=== PATIENT | male | born 1970 | race Caucasian/White ===

== ENCOUNTER 2021-06-20 01:14 | Outpatient (CLI) | payer BC, SELFPAY ==
[2021-06-20 10:55] LABS: Source Nasal/Nares
[2021-06-20 14:39] LABS: COVID-19 PCR Negative (Negative)
== END 2021-06-20 01:15 | disposition home or self-care (01) ==
LOC: LBO 01:14
PROVIDERS: PCP Physician Assistant; Visit Provider Family Medicine
DX: Z20.822 Contact with and (suspected) exposure to COVID-19 (principal)
CPT/HCPCS: 87635

== ENCOUNTER 2021-06-22 01:28 | Outpatient (CLI) | payer BC, SELFPAY ==
--- NOTE | 2021-06-22 13:31 | ST.MBS_ITS ---
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 Prior medical history largely unremarkable. Patient is now s/p biopsy of tongue base on 03/2021, currently undergoing radiation treatment with adjuvant chemotherapy at [facility] in [place], [place]. Primary tumor location: Tongue base Secondary tumor location: cervical adenopathy Resection: biopsy only,05/04/2021. Reconstruction: no Previous cancer treatment: no Feeding tube present: yes Weight loss: 9lb lb loss after biopsy, then molar extraction due to pain/difficulty chewing; actively followed by RD at [facility] Prior level of swallow function: no history prior, presume WNL. Oral Motor examination unchanged relative to clinical swallow evaluation. Jaw: 35 mm MATI Dentition: natural/intact, except 1 R mandibular molar recently prophylactically extracted SUBJECTIVE: Patient reports no change(s) relative to clinical swallow evaluation aside from soreness related to radiation treatment. Will occasionally have globus with pills, easily resolved with thin liquid wash; endorses continued mild odynophagia and sensation of pharyngeal residue secondary to tumor, but otherwise no trouble with swallowing. MDADI MD Dyllan Dysphagia Inventory (MDADI), a validated and reliable self- administered questionnaire designed specifically for evaluating the impact of dysphagia on the QOL of patients with head and neck cancer (Megan et al 2001), was re-administered: Global Score: 4 Physical: 3.8 (relative to 4 in 05/2021) Emotional : 3.3 (relative to 4.2 in 05/2021) Functional: 4.0 (relative to 4.2 in 05/2021) Scores range from 1 (extremely low functioning) to 5 (Extremely high functioning) Composite Score: 73.7 (relative to 82 in 05/2021) Scores range from 20 ? extremely low functioning, to 100 ? high functioning. Overall scores represent mildly reduced physical effects, mild-moderate emotional effects from current dysphagia presentation. IMPRESSIONS: Swallow safety is preserved; swallow efficiency is mildly impaired. Mild oropharyngeal dysphagia, characterized by reduced lingual control+delayed pharyngeal swallow onset as evidenced by premature spillage of less viscous liquids (less than half of bolus) to level of the valleculae prior to swallow onset with swallow triggered at valleculae across most trials, and mildly reduced laryngeal elevation/laryngeal vestibule closure as evidenced by occasional flash penetration of less viscous liquids; hypertrophy noted along cervical esophagus during swallow at approx C6 level, otherwise overall functional swallow; patient is sensate to prespillage of liquids per his report. 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 Patient appears to be at low risk for potential aspiration PNA and/or pulmonary compromise and low-moderate risk for malnutrition/dehydration given current chemoradiation treatment process, possible treatment-related symptoms, and presence of feeding tube. Oral diet modification is not indicated; non-oral nutrition is prophylactically in place. Swallow prognosis is good given age, cancer type and location, client report of participation in some prescribed swallow exercise to date (ie effortful swallow only per patient report); prognosis pending patient/caregiver training in risk management as outlined during current cancer treatment, including use of trialed compensatory strategies. Patient appears to be a good candidate for behavioral swallow rehabilitation. Specialist referrals: N/A Ancillary tests: N/A at this time Diet texture recommendation: IDDSI Level 7-Regular Solids, 0-Thin Liquids Please see further details at [email or web address] Diet texture modification is per patient's preference; please adjust diet textures at patient's discretion & collaboration with care team. Risk Management: Behavioral reflux precautions, including upright position during + 90 mins after meals. Alternate solids/liquids as able Control risk factors for aspiration pneumonia via (a) thorough oral hygiene & (b) maintaining physical mobility as tolerated PLAN: Therapy: Patient has subsequent outpatient session scheduled with OPEN DEVELOPER OPERATOR via [facility] to review results of today's exam and develop further treatment plan as appropriate; [facility] OPEN DEVELOPER OPERATOR to follow PRN throughout patient's chemoradiation treatment. Goal: Additional goals TBD pending further patient/caregiver interview Follow-up exam: TBD Thank you for allowing me to take part in this patient's care. Please feel free to contact me with any questions/concerns. Aubree Casper MA [facility]EL[facility]PER[facility] Speech Language Pathologist [phone] OBJECTIVE: Videofluoroscopic Swallow Evaluation (VFSE/MBSS) was conducted in the lateral and [id number] projections by Speech-Language Pathologist, in collaboration with Radiologist, to evaluate oropharyngeal swallow function. Anatomic view under fluoroscopy: WFL PO Barium Contrast Trials Oral barium water-soluble contrast was administered as follows: IDDSI Level 0 Varibar thin liquid (40% w/v) IDDSI Level 2 Varibar nectar thick/mildly thick liquid (40% w/v) IDDSI Level 3 Varibar thin honey/liquidised/moderately-thick (40% w/v) IDDSI Level 4 Varibar pudding/pureed/extremely thick (40% w/v) IDDSI Level 7 Regular Solid: 1/2 dudley cracker coated in 3 mL Varibar pudding; 13 mm barium tablet PHYSIOLOGIC FINDINGS (1) Oral Impairment 1 Lip Closure 0-No labial escape 2 Tongue Control 2- Posterior escape of less than half of bolus 3 Bolus Preparation/Mastication 0- Timely and efficient chewing/mashing 4 Bolus Transport/Lingual Motion 0- Brisk tongue motion 5 Oral residue 1- Trace residue lining oral structures Location palate, tongue 6 Initiation of pharyngeal swallow 1- Bolus head in valleculae Pharyngeal Impairment 7 Velar Elevation 0- No bolus between soft palate and pharyngeal wall 8 Laryngeal Elevation 1- Partial superior movement of thyroid cartilage with partial approximation of arytenoids to epiglottic petiole 9 Anterior Hyoid Excursion 0- Complete anterior movement 10 Epiglottic Movement 0- Complete inversion 11 Laryngeal Vestibule Closure 1- Incomplete; narrow column of air/contrast in laryngeal vestibule Penetration occasional flash penetration of less viscous liquids during swallow from current bolus Aspiration not observed PAS / Overall 8-Point Penetration-Aspiration Scale (2) 2 - Material enters the airway remains above the vocal folds and is ejected from the airway Clinical Indicator(s) of Prandial/Postprandial Aspiration N/A 12 Pharyngeal Stripping Wave 0- Present; complete 13 Pharyngeal Contraction 1- Incomplete; pseudodiverticulae on Right *does not appear to impede bolus flow *pharyngeal contraction/AP view not captured on fluoro recording per review 14 PES/UES Opening 0- Complete distension and complete duration; no obstruction of flow 15 Tongue Base Retraction 1- Trace column of contrast between tongue base and posterior pharyngeal wall 16 Pharyngeal residue 1- Trace residue within or on pharyngeal structures Location [place] Pharyngeal Residue Severity Rating Scale(3) Valleculae II Trace 1-5% Trace coating Esophageal Impairment 17 Esophageal Clearance in Upright Position 0-Complete clearance; esophageal coating Notes This study was performed for interpretation only of the oropharyngeal and pharyngoesophageal domains of swallowing, and is not intended to diagnose any other radiologic abnormalities or substitute for a formal esophagram study. DIGEST Scale Rating (4) Interaction of Assigned Safety and Efficiency Grades (0=No Impairment, 1=Mild, 2=Moderate, 3=Severe, 4=Life Threatening) Safety Grade S0 S1 S2 S3 S4 Efficiency Grade E0 0 1 2 3 3 E1 1 1 2 3 3 E2 1 2 2 3 3 E3 2 2 3 3 4 E4 3 3 3 4 4 Overall Mild Pharyngeal Impairment - Above score(s) represent swallowing events without application of compensat ory techniques PEE: (5) Severity LEVEL 7 - Full PO: normal diet - Normal in all situations Trialed Compensatory Strategies & Outcome: Maneuvers Successful/Unsuccessful (+/-) Postures Successful/Unsuccessful (+/-) 3 second Preparatory Set No difference Chin Tuck Posture N/A Cough N/A Posterior Head tilt N/A Reflexive Cued Throat Clear N/A Head Tilt to N/A Reflexive Left Cued Right Saliva swallow x[#] N/A Head Turn/Rotation to N/A Supraglottic Swallow N/A Left Super-supraglottic Swallow N/A Right Bolus Modifications Successful/Unsuccessful (+/-) Delivery/Alternating Consistencies - Wash with thin liquid + Delivery/Via Straw Reduced Volume + Reduced Rate of Intake + Increased Viscosity + Other: Coding CPT Codes MOTION FLUOROSCOPY/SWALLOW - 98984 ([id number]) 1: Raúl Alvares al. ?MBS measurement tool for swallow impairment--MBSImp: establishing a standard.? Dysphagia vol. 23,4 (2008): 392-405. doi:10.1007/w61194-128-0054-4 2: (Kishor et red, 1995) 3: (Yasmin et al, 2015) 4: (O'Reed, et al, 1999, Hien et al. Cancer. 2017;123(1):62-70) The Dynamic Imaging Grade of Swallowing Toxicity (DIGEST) Score represents a set of structured criteria primarily validated for head and neck cancer patients to grade the interaction of safety, efficiency, and overall impairment of the pharyngeal swallow, meant to assist in prioritization of targets for dysphagia treatment planning. 5: The Dysphagia Outcome and Severity Scale is a 7-point scale developed to systematically rate the functional severity of dysphagia based on objective assessment and make recommendations for diet level, independence level, and type of nutrition.
--- NOTE | 2021-06-22 14:30 | DI.RAD_ITS ---
Exam(s) RF MODIFIED SPEECH BA SWALLOW EXAM: RF MODIFIED SPEECH BA SWALLOW CLINICAL HISTORY: CANCER OF BASE OF TONGUE, C01,evaluate swallow competence TECHNIQUE: 2D and realtime digital imaging was performed. COMPARISON: No exams were available for comparison FINDINGS: Modified barium swallow was performed in conjunction with speech pathologist. Please see the speech pathologist's report. IMPRESSION: RADIATION DOSE DELIVERED: campos Breen=4.3 mGy Total DLP
[2021-06-22] MEDS: Barium Sulfate 40% W/V 1500 CPS 250 ML BTL PO (14:57)
[2021-06-22] MEDS: Barium Sulfate Oral Paste 40% W/V 230 ML TUBE 13 ML PO (14:58)
[2021-06-22] MEDS: Barium Sulfate 700 MG TAB PO (14:58)
[2021-06-22] MEDS: Barium Sulfate 81% w/w for Oral Suspension 148 GM BTL 90 GM PO (15:02)
== END 2021-06-22 01:48 ==
PROVIDERS: PCP Physician Assistant; Visit Provider Speech-Language Pathologist
DX: C02.9 Malignant neoplasm of tongue, unspecified (principal); B97.7 Papillomavirus as the cause of diseases classified elsewhere; R13.12 Dysphagia, oropharyngeal phase
CPT/HCPCS: 92611; 74221

== ENCOUNTER 2021-07-04 01:17 | Outpatient (RCR) | payer BC, SELFPAY ==
[2021-06-15] MEDS: Normal Saline Flush 10 ML SYR IVP (07:59)
[2021-06-15 08:03] LABS: Abs Immature Grans 0.03 10^3/uL (0.0-0.06); Absolute Basophil Count 0.03 10^3/uL (0.0-0.2); Absolute Eosinophil Count 0.24 10^3/uL (0.0-0.7); Absolute Lymphocyte Count 0.43 10^3/uL (1.2-3.4); Absolute Monocyte Count 0.79 10^3/uL (0.1-0.8); Absolute Neutrophil Count 4.87 10^3/uL (1.2-6.7); Basophils % 0.5; Eosinophils % 3.8; HCT 41.1 % (40.0-50.0); HGB 13.9 g/dL (13.5-17.5); Immature Grans % 0.5; Lymphocytes % 6.7; MCH 28.2 pg (27.0-33.0); MCHC 33.8 % (32.0-36.0); MCV 83.4 fL (80-95); MPV 8.8 fL (8.0-11.0); Monocytes % 12.4; Neutrophils % 76.1; Nucleated RBC 0 %; Platelet Count 308 10^3/uL (130-400); RBC 4.93 10^6/uL (4.36-5.78); RDW 12.4 % (11.8-14.1); RDW-SD 37.5 fL; WBC 6.39 10^3/uL (4.4-10.8)
[2021-06-15 08:16] LABS: ALT 45 U/L (16-63); AST 27 U/L (15-37); Albumin 3.5 g/dL (3.4-5.0); Alkaline Phosphatase 66 U/L (46-116); Anion Gap 6.8 mmol/L (3-11); BUN 15 mg/dL (7-18); Bilirubin, Total 0.4 mg/dL (0.2-1.0); CO2 29.2 mmol/L (21.0-32.0); CREATININE 0.8 mg/dL (0.70-1.30); Calcium 9.1 mg/dL (8.5-10.1); Chloride 101 mmol/L (98-107); Glucose 96 mg/dL (74-106); Potassium 4.2 mmol/L (3.5-5.1); Sodium 137 mmol/L (136-145); Total Protein 7.6 g/dL (6.4-8.2)
[2021-06-20] MEDS: Normal Saline Flush 10 ML SYR IVP (08:45)
[2021-06-20 09:10] LABS: Abs Immature Grans 0.02 10^3/uL (0.0-0.06); Absolute Basophil Count 0.02 10^3/uL (0.0-0.2); Absolute Eosinophil Count 0.14 10^3/uL (0.0-0.7); Absolute Lymphocyte Count 0.39 10^3/uL (1.2-3.4); Absolute Monocyte Count 0.59 10^3/uL (0.1-0.8); Absolute Neutrophil Count 3.03 10^3/uL (1.2-6.7); Basophils % 0.5; Eosinophils % 3.3; HCT 39.5 % (40.0-50.0); HGB 13.3 g/dL (13.5-17.5); Immature Grans % 0.5; Lymphocytes % 9.3; MCH 28.1 pg (27.0-33.0); MCHC 33.7 % (32.0-36.0); MCV 83.3 fL (80-95); MPV 9.2 fL (8.0-11.0); Monocytes % 14.1; Neutrophils % 72.3; Nucleated RBC 0 %; Platelet Count 290 10^3/uL (130-400); RBC 4.74 10^6/uL (4.36-5.78); WBC 4.19 10^3/uL (4.4-10.8)
[2021-06-20 09:37] LABS: ALT 31 U/L (16-63); AST 15 U/L (15-37); Albumin 3.6 g/dL (3.4-5.0); Alkaline Phosphatase 63 U/L (46-116); Anion Gap 8.7 mmol/L (3-11); BUN 15 mg/dL (7-18); Bilirubin, Total 0.4 mg/dL (0.2-1.0); CO2 28.3 mmol/L (21.0-32.0); CREATININE 0.8 mg/dL (0.70-1.30); Calcium 9.3 mg/dL (8.5-10.1); Chloride 98 mmol/L (98-107); Glucose 121 mg/dL (74-106); Magnesium 1.9 mg/dL (1.8-2.4); Potassium 3.9 mmol/L (3.5-5.1); Sodium 135 mmol/L (136-145); Total Protein 7.4 g/dL (6.4-8.2)
[2021-06-27] MEDS: Normal Saline Flush 10 ML SYR IVP (08:55)
[2021-06-27 09:24] LABS: Abs Immature Grans 0.02 10^3/uL (0.0-0.06); Absolute Basophil Count 0.03 10^3/uL (0.0-0.2); Absolute Lymphocyte Count 0.27 10^3/uL (1.2-3.4); Absolute Neutrophil Count 5.73 10^3/uL (1.2-6.7); Basophils % 0.4; Eosinophils % 1.5; HCT 36.4 % (40.0-50.0); HGB 12.3 g/dL (13.5-17.5); Immature Grans % 0.3; MCH 27.9 pg (27.0-33.0); MCHC 33.8 % (32.0-36.0); MCV 82.5 fL (80-95); MPV 9.3 fL (8.0-11.0); Monocytes % 8.9; Neutrophils % 84.9; Nucleated RBC 0 %; Platelet Count 258 10^3/uL (130-400); RBC 4.41 10^6/uL (4.36-5.78); RDW 11.9 % (11.8-14.1); RDW-SD 35.9 fL; WBC 6.75 10^3/uL (4.4-10.8)
[2021-06-27 09:37] LABS: ALT 29 U/L (16-63); AST 11 U/L (15-37); Albumin 3.5 g/dL (3.4-5.0); Alkaline Phosphatase 61 U/L (46-116); Anion Gap 6.8 mmol/L (3-11); BUN 14 mg/dL (7-18); Bilirubin, Total 0.4 mg/dL (0.2-1.0); CO2 29.2 mmol/L (21.0-32.0); CREATININE 0.9 mg/dL (0.70-1.30); Calcium 9.1 mg/dL (8.5-10.1); Chloride 100 mmol/L (98-107); Glucose 148 mg/dL (74-106); Magnesium 1.7 mg/dL (1.8-2.4); Potassium 3.7 mmol/L (3.5-5.1); Sodium 136 mmol/L (136-145); Total Protein 7.1 g/dL (6.4-8.2)
[2021-07-04] MEDS: Normal Saline Flush 10 ML SYR IVP (09:11)
[2021-07-04 09:22] LABS: Abs Immature Grans 0.01 10^3/uL (0.0-0.06); Absolute Basophil Count 0.02 10^3/uL (0.0-0.2); Absolute Eosinophil Count 0.09 10^3/uL (0.0-0.7); Absolute Lymphocyte Count 0.23 10^3/uL (1.2-3.4); Absolute Monocyte Count 0.56 10^3/uL (0.1-0.8); Absolute Neutrophil Count 3.58 10^3/uL (1.2-6.7); Basophils % 0.4; HCT 35.8 % (40.0-50.0); Immature Grans % 0.2; Lymphocytes % 5.1; MCHC 33.5 % (32.0-36.0); MCV 83.4 fL (80-95); MPV 8.9 fL (8.0-11.0); Monocytes % 12.5; Neutrophils % 79.8; Nucleated RBC 0 %; Platelet Count 159 10^3/uL (130-400); RBC 4.29 10^6/uL (4.36-5.78); RDW 12.3 % (11.8-14.1); RDW-SD 37.1 fL; WBC 4.49 10^3/uL (4.4-10.8)
[2021-07-04 09:39] LABS: ALT 29 U/L (16-63); AST 13 U/L (15-37); Albumin 3.4 g/dL (3.4-5.0); Alkaline Phosphatase 62 U/L (46-116); BUN 13 mg/dL (7-18); Bilirubin, Total 0.4 mg/dL (0.2-1.0); CREATININE 0.8 mg/dL (0.70-1.30); Calcium 8.8 mg/dL (8.5-10.1); Chloride 101 mmol/L (98-107); Glucose 91 mg/dL (74-106); Magnesium 1.8 mg/dL (1.8-2.4); Potassium 4.2 mmol/L (3.5-5.1); Sodium 136 mmol/L (136-145); Total Protein 7.1 g/dL (6.4-8.2)
== END 2021-07-04 23:59 | disposition home or self-care (01) ==
LOC: INF 01:17
PROVIDERS: PCP Physician Assistant; Visit Provider Internal Medicine Hematology & Oncology
DX: C01 Malignant neoplasm of base of tongue (principal); Z45.2 Encounter for adjustment and management of vascular access device
CPT/HCPCS: 36591; 80053; 83735; 85025

== ENCOUNTER 2021-07-26 03:02 | Outpatient (RCR) | payer BC, SELFPAY ==
[2021-07-11] MEDS: Normal Saline Flush 10 ML SYR IVP (09:00)
[2021-07-11 09:09] LABS: Absolute Basophil Count 0.01 10^3/uL (0.0-0.2); Absolute Eosinophil Count 0.06 10^3/uL (0.0-0.7); Absolute Lymphocyte Count 0.15 10^3/uL (1.2-3.4); Absolute Monocyte Count 0.54 10^3/uL (0.1-0.8); Basophils % 0.3; Eosinophils % 1.6; HCT 33.9 % (40.0-50.0); HGB 11.6 g/dL (13.5-17.5); MCHC 34.2 % (32.0-36.0); MCV 81.7 fL (80-95); MPV 8.7 fL (8.0-11.0); Monocytes % 14.4; Neutrophils % 79.7; Nucleated RBC 0 %; Platelet Count 138 10^3/uL (130-400); RBC 4.15 10^6/uL (4.36-5.78); RDW 12.7 % (11.8-14.1); RDW-SD 35.5 fL; WBC 3.76 10^3/uL (4.4-10.8)
[2021-07-11 09:23] LABS: ALT 22 U/L (16-63); AST 15 U/L (15-37); Albumin 3.4 g/dL (3.4-5.0); Alkaline Phosphatase 66 U/L (46-116); Anion Gap 6.4 mmol/L (3-11); BUN 15 mg/dL (7-18); Bilirubin, Total 0.3 mg/dL (0.2-1.0); CO2 29.6 mmol/L (21.0-32.0); CREATININE 0.7 mg/dL (0.70-1.30); Calcium 9.1 mg/dL (8.5-10.1); Chloride 96 mmol/L (98-107); Glucose 112 mg/dL (74-106); Magnesium 2.1 mg/dL (1.8-2.4); Potassium 4.1 mmol/L (3.5-5.1); Sodium 132 mmol/L (136-145); Total Protein 7.1 g/dL (6.4-8.2)
[2021-07-18] MEDS: Normal Saline Flush 10 ML SYR IVP (08:49)
[2021-07-18 09:16] LABS: Absolute Basophil Count 0.01 10^3/uL (0.0-0.2); Absolute Eosinophil Count 0.02 10^3/uL (0.0-0.7); Absolute Lymphocyte Count 0.12 10^3/uL (1.2-3.4); Absolute Monocyte Count 0.26 10^3/uL (0.1-0.8); Absolute Neutrophil Count 1.22 10^3/uL (1.2-6.7); Basophils % 0.6; Eosinophils % 1.2; HCT 30.6 % (40.0-50.0); HGB 10.8 g/dL (13.5-17.5); Lymphocytes % 7.4; MCH 29.1 pg (27.0-33.0); MCHC 35.3 % (32.0-36.0); MCV 82.5 fL (80-95); MPV 8.8 fL (8.0-11.0); Neutrophils % 74.8; Nucleated RBC 0 %; Platelet Count 132 10^3/uL (130-400); RBC 3.71 10^6/uL (4.36-5.78); RDW 12.8 % (11.8-14.1); RDW-SD 35.9 fL
[2021-07-18 09:22] LABS: WBC 1.63 10^3/uL (4.4-10.8)
[2021-07-18 09:27] LABS: Diff Comment Diff Reviewed; RBC Morphology Normal
[2021-07-18 09:28] LABS: ALT 20 U/L (16-63); AST 12 U/L (15-37); Albumin 3.2 g/dL (3.4-5.0); Alkaline Phosphatase 61 U/L (46-116); Anion Gap 4.5 mmol/L (3-11); BUN 15 mg/dL (7-18); Bilirubin, Total 0.3 mg/dL (0.2-1.0); CO2 30.5 mmol/L (21.0-32.0); CREATININE 0.7 mg/dL (0.70-1.30); Calcium 9.1 mg/dL (8.5-10.1); Chloride 94 mmol/L (98-107); Glucose 99 mg/dL (74-106); Potassium 4.2 mmol/L (3.5-5.1); Sodium 129 mmol/L (136-145); Total Protein 7.2 g/dL (6.4-8.2)
== END 2021-08-01 23:59 | disposition home or self-care (01) ==
LOC: INF 03:02
PROVIDERS: PCP Physician Assistant; Visit Provider Internal Medicine Hematology & Oncology
DX: C01 Malignant neoplasm of base of tongue (principal); Z45.2 Encounter for adjustment and management of vascular access device
CPT/HCPCS: 36591; 80053; 83735; 85025

== ENCOUNTER 2022-02-10 09:06 | Outpatient (RCR) | payer BC, SELFPAY ==
[2022-02-10 09:20] LABS: Absolute Basophil Count 0.02 10^3/uL (0.0-0.2); Absolute Eosinophil Count 0.12 10^3/uL (0.0-0.7); Absolute Lymphocyte Count 0.39 10^3/uL (1.2-3.4); Absolute Monocyte Count 0.34 10^3/uL (0.1-0.8); Absolute Neutrophil Count 1.66 10^3/uL (1.2-6.7); Basophils % 0.8; Eosinophils % 4.7; HCT 42.5 % (40.0-50.0); HGB 14.5 g/dL (13.5-17.5); Lymphocytes % 15.4; MCH 30.3 pg (27.0-33.0); MCHC 34.1 % (32.0-36.0); MCV 89 fL (80-95); MPV 9.1 fL (8.0-11.0); Monocytes % 13.4; Neutrophils % 65.7; Platelet Count 171 10^3/uL (130-400); RBC 4.78 10^6/uL (4.36-5.78); RDW 12.7 % (11.8-14.1); RDW-SD 41.7 fL; WBC 2.53 10^3/uL (4.4-10.8)
[2022-02-10 09:44] LABS: ALT 36 U/L (16-63); AST 20 U/L (15-37); Albumin 4.1 g/dL (3.4-5.0); Alkaline Phosphatase 49 U/L (46-116); Anion Gap 3.9 mmol/L (3-11); BUN 16 mg/dL (7-18); Bilirubin, Total 0.5 mg/dL (0.2-1.0); CO2 34.1 mmol/L (21.0-32.0); CREATININE 0.9 mg/dL (0.70-1.30); Calcium 9.1 mg/dL (8.5-10.1); Chloride 101 mmol/L (98-107); Estimated GFR 102.12 (mL/min/1.73m2); Glucose 100 mg/dL (74-106); Potassium 4.1 mmol/L (3.5-5.1); Sodium 139 mmol/L (136-145); TSH 5.13 uIU/mL (0.36-3.74); Total Protein 7.7 g/dL (6.4-8.2)
== END 2022-03-03 23:59 | disposition home or self-care (01) ==
LOC: INF 09:06
PROVIDERS: PCP Physician Assistant; Visit Provider Internal Medicine Hematology & Oncology
DX: C01 Malignant neoplasm of base of tongue (principal); D72.819 Decreased white blood cell count, unspecified; R94.6 Abnormal results of thyroid function studies
CPT/HCPCS: 36415; 80053; 84443; 85025

== ENCOUNTER 2022-07-03 02:13 | Outpatient (CLI) | payer BC, SELFPAY ==
--- NOTE | 2022-07-03 | DI.CT_ITS ---
Exam(s) CT NECK W EXAM: CT NECK W CLINICAL HISTORY: CA BASE OF TONGUE, C01, HEAD/NECK CA, METS DISEASE. TECHNIQUE: Imaging Protocol: Axial computed tomography images with coronal and sagittal reformatted images were created and reviewed CONTRAST MATERIAL: Intravenous: Omnipaque 350 Contrast volume:100 ml contrast FINDINGS: Parotids/submandibular/thyroid gland: Normal. Lymphadenopathy: Previously noted right-sided level 2 lymph node not visible on current exam. Carotids/Jugular: No significant stenosis or dissection.. Soft tissues: The floor the mouth is unremarkable. The epiglottis and vocal cords are within normal limits. Lungs: Images through both lung apices are unremarkable. Bones: Mild degenerative changes of the cervical spine. Visualized portions of the brain and orbits: Unremarkable. Sinuses and mastoids: Clear. IMPRESSION: No evidence of mass, adenopathy or fluid collection. RADIATION DOSE DELIVERED: 558.84mGy.cm Total DLP DATA REPOSITORY: All CT scans at this facility are submitted to the National Radiology Data Registry (NRDR) Dose Index Registry (DIR) with the [employer] ([employer]). RADIATION OPTIMIZATION: All CT scans at this facility use at least one of these dose optimization te chniques: automated exposure control; mA and/or kV adjustment per patient size (includes targeted exa ms where dose is matched to clinical indication); or iterative reconstruction.
--- NOTE | 2022-07-03 | DI.CT_ITS ---
Exam(s) CT CHEST WO EXAM: CT CHEST WO CLINICAL HISTORY: HEAD AND NECK CA, METS DISEASE, CA BASE OF TONGUE, C01. TECHNIQUE: Imaging protocol: Axial computed tomography images were obtained and coronal and sagittal reformatted images were created and reviewed. COMPARISON: No exams were available for comparison FINDINGS: Tracheobronchial tree: Patent where visualized. Pulmonary parenchyma: No consolidation or dominant measurable mass. There are 2 pleural-based 2 mm no dules. One along the right lower lobe and 1 in the right middle lobe. Mediastinum and Ruthann: No dominant adenopathy or fluid collection. The esophagus is unremarkable. Thyroid gland: Unremarkable. Pleura: No effusion or pneumothorax. Heart: The heart is not dilated. Mild coronary artery calcification. No pericardial effusion. Aorta: Thoracic aorta non-dilated. Mild atherosclerosis. Upper abdomen: Unremarkable. Lymph nodes: Within normal limits. Soft tissues: Unremarkable. Bones:Within normal limits for the patient's age. No aggressive osseous lesions. IMPRESSION: 1. Two nonspecific pleural-based 2 mm nodules in the right lung. 2. No acute pulmonary process. RADIATION DOSE DELIVERED: 465.46mGy.cm Total DLP 465.46mGy.cm Total DLP DATA REPOSITORY: All CT scans at this facility are submitted to the National Radiology Data Registry (NRDR) Dose Index Registry (DIR) with the [employer] (ACR). RADIATION OPTIMIZATION: All CT scans at this facility use at least one of these dose optimization te chniques: automated exposure control; mA and/or kV adjustment per patient size (includes targeted exa ms where dose is matched to clinical indication); or iterative reconstruction.
[2022-07-03 14:36] LABS: CREATININE 0.9 mg/dL (0.70-1.30); Estimated GFR 101.49 (mL/min/1.73m2); TSH 21.07 uIU/mL (0.36-3.74)
[2022-07-03] MEDS: Normal Saline - Diluent 50 ML VIAL IJ (15:21)
[2022-07-03] MEDS: Normal Saline Flush 10 ML SYR IVP (15:22)
[2022-07-03] MEDS: Omnipaque 350 MG/ML 500 ML BTL-Imaging package IJ (15:22)
== END 2022-07-03 02:33 ==
LOC: DI 02:13
PROVIDERS: PCP Physician Assistant; Visit Provider Preventive Medicine Undersea and Hyperbaric Medicine
DX: Z01.812 Encounter for preprocedural laboratory examination (principal); C01 Malignant neoplasm of base of tongue; R91.8 Other nonspecific abnormal finding of lung field; R94.6 Abnormal results of thyroid function studies; Z92.21 Personal history of antineoplastic chemotherapy
CPT/HCPCS: 70491; 71250; 82565; 84443

== ENCOUNTER 2022-07-03 07:23 | Outpatient (RCR) | payer BC, SELFPAY ==
[2022-07-03] MEDS: Normal Saline Flush 10 ML SYR IVP (14:10)
== END 2022-07-04 23:59 | disposition home or self-care (01) ==
LOC: INF 07:23
PROVIDERS: PCP Physician Assistant; Visit Provider Preventive Medicine Undersea and Hyperbaric Medicine
DX: C01 Malignant neoplasm of base of tongue (principal); D72.819 Decreased white blood cell count, unspecified
CPT/HCPCS: 36415

== ENCOUNTER 2022-07-12 14:11 | Outpatient (CLI) | payer BC, SELFPAY ==
[2022-07-12 14:43] LABS: Abs Immature Grans 0.01 10^3/uL (0.0-0.06); Absolute Basophil Count 0.02 10^3/uL (0.0-0.2); Absolute Lymphocyte Count 0.56 10^3/uL (1.2-3.4); Absolute Monocyte Count 0.41 10^3/uL (0.1-0.8); Absolute Neutrophil Count 1.54 10^3/uL (1.2-6.7); Basophils % 0.8; Eosinophils % 3.8; HCT 39.6 % (40.0-50.0); HGB 13.4 g/dL (13.5-17.5); Immature Grans % 0.4; Lymphocytes % 21.2; MCH 30.2 pg (27.0-33.0); MCHC 33.8 % (32.0-36.0); MCV 89 fL (80-95); Monocytes % 15.5; Neutrophils % 58.3; Platelet Count 184 10^3/uL (130-400); RBC 4.44 10^6/uL (4.36-5.78); RDW 13.4 % (11.8-14.1); RDW-SD 43.9 fL; WBC 2.64 10^3/uL (4.4-10.8)
[2022-07-12 14:47] LABS: Anion Gap 6.5 mmol/L (3-11); BUN 10 mg/dL (7-18); CO2 31.5 mmol/L (21.0-32.0); CREATININE 0.9 mg/dL (0.70-1.30); Calcium 9.2 mg/dL (8.5-10.1); Chloride 102 mmol/L (98-107); Estimated GFR 101.49 (mL/min/1.73m2); Glucose 94 mg/dL (74-106); Potassium 3.9 mmol/L (3.5-5.1); Sodium 140 mmol/L (136-145)
== END 2022-07-12 14:12 | disposition home or self-care (01) ==
PROVIDERS: PCP Physician Assistant; Visit Provider Preventive Medicine Undersea and Hyperbaric Medicine
DX: C01 Malignant neoplasm of base of tongue (principal)
CPT/HCPCS: 36415; 80048; 85025

== ENCOUNTER 2022-09-01 14:22 | Outpatient (CLI) | payer BC, SELFPAY ==
[2022-09-01 16:44] LABS: Abs Immature Grans 0.01 10^3/uL (0.0-0.06); Absolute Basophil Count 0.02 10^3/uL (0.0-0.2); Absolute Eosinophil Count 0.08 10^3/uL (0.0-0.7); Absolute Lymphocyte Count 0.74 10^3/uL (1.2-3.4); Absolute Monocyte Count 0.44 10^3/uL (0.1-0.8); Absolute Neutrophil Count 2.74 10^3/uL (1.2-6.7); Basophils % 0.5; HCT 39.4 % (40.0-50.0); HGB 13.8 g/dL (13.5-17.5); Immature Grans % 0.2; Lymphocytes % 18.4; MCH 30.3 pg (27.0-33.0); MCV 86 fL (80-95); MPV 9.2 fL (8.0-11.0); Monocytes % 10.9; Platelet Count 192 10^3/uL (130-400); RBC 4.56 10^6/uL (4.36-5.78); RDW 13.2 % (11.8-14.1); RDW-SD 42.2 fL; WBC 4.03 10^3/uL (4.4-10.8)
[2022-09-01 17:03] LABS: ALT 40 U/L (16-63); AST 24 U/L (15-37); Alkaline Phosphatase 47 U/L (46-116); Anion Gap 5.9 mmol/L (3-11); BUN 14 mg/dL (7-18); Bilirubin, Total 0.5 mg/dL (0.2-1.0); CO2 30.1 mmol/L (21.0-32.0); CREATININE 0.9 mg/dL (0.70-1.30); Calcium 9.3 mg/dL (8.5-10.1); Chloride 101 mmol/L (98-107); Estimated GFR 101.49 (mL/min/1.73m2); Glucose 95 mg/dL (74-106); Potassium 3.9 mmol/L (3.5-5.1); Sodium 137 mmol/L (136-145); TSH 7.47 uIU/mL (0.36-3.74); Total Protein 7.4 g/dL (6.4-8.2)
== END 2022-09-01 14:23 | disposition home or self-care (01) ==
LOC: LBO 14:22
PROVIDERS: PCP Physician Assistant; Visit Provider Internal Medicine Hematology & Oncology
DX: C01 Malignant neoplasm of base of tongue (principal); E03.4 Atrophy of thyroid (acquired); D72.819 Decreased white blood cell count, unspecified
CPT/HCPCS: 80053; 84443; 85025

== ENCOUNTER 2023-01-22 05:00 | Outpatient (CLI) | payer BC, SELFPAY ==
[2023-01-22 08:41] LABS: Estimated GFR 89.44 (mL/min/1.73m2)
== END 2023-01-22 05:01 | disposition home or self-care (01) ==
LOC: LBO 05:00
PROVIDERS: Preventive Medicine Undersea and Hyperbaric Medicine; PCP Physician Assistant; Visit Provider Internal Medicine Hematology & Oncology
DX: C01 Malignant neoplasm of base of tongue (principal); E03.4 Atrophy of thyroid (acquired)
CPT/HCPCS: 36415; 82565; 84443

== ENCOUNTER 2023-05-02 12:55 | Outpatient (CLI) | payer BC, SELFPAY ==
[2023-05-02 13:35] LABS: TSH 4.58 uIU/mL (0.36-3.74)
== END 2023-05-02 12:56 | disposition home or self-care (01) ==
LOC: LBO 12:56
PROVIDERS: PCP Physician Assistant; Visit Provider Internal Medicine Hematology & Oncology
DX: E03.4 Atrophy of thyroid (acquired) (principal)
CPT/HCPCS: 36415; 84443

== ENCOUNTER 2024-01-28 18:26 | Outpatient (REF) | payer BC, SELFPAY ==
[2024-01-28 16:09] LABS: TSH 2.64 uIU/Ml (0.36-3.74)
== END 2024-01-28 18:27 | disposition home or self-care (01) ==
LOC: LBN 18:26
PROVIDERS: PCP Physician Assistant; Visit Provider Nurse Practitioner
DX: E03.4 Atrophy of thyroid (acquired) (principal)
CPT/HCPCS: 84443

== ENCOUNTER 2024-04-28 02:01 | Outpatient (RCR) | payer BC, SELFPAY ==
[2024-04-21 11:06] LABS: Abs Immature Grans 0.02 10^3/uL (0.0-0.06); Absolute Basophil Count 0.03 10^3/uL (0.0-0.2); Absolute Eosinophil Count 0.11 10^3/uL (0.0-0.7); Absolute Lymphocyte Count 0.79 10^3/uL (1.2-3.4); Absolute Monocyte Count 0.73 10^3/uL (0.1-0.8); Absolute Neutrophil Count 5.65 10^3/uL (1.2-6.7); Basophils % 0.4 %; Eosinophils % 1.5 %; HCT 42.6 % (40.0-50.0); HGB 14.9 g/dL (13.5-17.5); Immature Grans % 0.3 %; Lymphocytes % 10.8 %; MCH 30.5 pg (27.0-33.0); MCV 87 fL (80-95); MPV 9.4 fL (8.0-11.0); Platelet Count 197 10^3/uL (130-400); RBC 4.89 10^6/uL (4.36-5.78); RDW 12.9 % (11.8-14.1); RDW-SD 40.7 fL; WBC 7.33 10^3/uL (4.4-10.8)
[2024-04-21 11:45] LABS: ALT 36 U/L (16-63); AST 18 U/L (15-37); Albumin 4.1 g/dL (3.4-5.0); Alkaline Phosphatase 51 U/L (46-116); Anion Gap 7.6 mmol/L (3-11); BUN 25 mg/dL (7-18); Bilirubin, Total 0.43 mg/dL (0.2-1.0); CO2 30.4 mmol/L (21.0-32.0); Calcium 9.6 mg/dL (8.5-10.1); Chloride 103 mmol/L (98-107); Estimated GFR 88.88 (mL/min/1.73m2); Glucose 93 mg/dL (74-106); Potassium 3.9 mmol/L (3.5-5.1); Sodium 141 mmol/L (136-145); TSH 3.54 uIU/mL (0.36-3.74); Total Protein 7.5 g/dL (6.4-8.2)
[2024-04-21] MEDS: Normal Saline Flush 10 ML SYR IVP (11:46)
[2024-04-28] MEDS: Normal Saline Flush 10 ML SYR IVP (13:09)
[2024-04-28 13:13] LABS: Abs Immature Grans 0.03 10^3/uL (0.0-0.06); Absolute Basophil Count 0.04 10^3/uL (0.0-0.2); Absolute Eosinophil Count 0.11 10^3/uL (0.0-0.7); Absolute Lymphocyte Count 0.61 10^3/uL (1.2-3.4); Absolute Monocyte Count 0.51 10^3/uL (0.1-0.8); Absolute Neutrophil Count 4.99 10^3/uL (1.2-6.7); Basophils % 0.6 %; Eosinophils % 1.7 %; HCT 39.7 % (40.0-50.0); HGB 13.7 g/dL (13.5-17.5); Immature Grans % 0.5 %; Lymphocytes % 9.7 %; MCH 30.5 pg (27.0-33.0); MCHC 34.5 % (32.0-36.0); MCV 88 fL (80-95); Monocytes % 8.1 %; Neutrophils % 79.4 %; Platelet Count 181 10^3/uL (130-400); RBC 4.49 10^6/uL (4.36-5.78); RDW 12.1 % (11.8-14.1); RDW-SD 39.2 fL; WBC 6.29 10^3/uL (4.4-10.8)
[2024-04-28 13:57] LABS: ALT 34 U/L (16-63); AST 19 U/L (15-37); Albumin 3.7 g/dL (3.4-5.0); Alkaline Phosphatase 56 U/L (46-116); Anion Gap 7.2 mmol/L (3-11); BUN 20 mg/dL (7-18); Bilirubin, Total 0.44 mg/dL (0.2-1.0); CO2 27.8 mmol/L (21.0-32.0); Calcium 8.9 mg/dL (8.5-10.1); Chloride 100 mmol/L (98-107); Estimated GFR 88.88 (mL/min/1.73m2); Glucose 99 mg/dL (74-106); Potassium 3.9 mmol/L (3.5-5.1); Sodium 135 mmol/L (136-145); Total Protein 7.1 g/dL (6.4-8.2)
== END 2024-05-03 23:59 | disposition home or self-care (01) ==
LOC: INF 02:01
PROVIDERS: PCP Physician Assistant; Visit Provider Internal Medicine Hematology
DX: C01 Malignant neoplasm of base of tongue (principal); E03.4 Atrophy of thyroid (acquired); Z45.2 Encounter for adjustment and management of vascular access device
CPT/HCPCS: 36591; 80053; 84439; 84443; 85025

== ENCOUNTER 2024-06-02 02:07 | Outpatient (RCR) | payer BC, SELFPAY ==
[2024-05-09 11:56] LABS: Abs Immature Grans 0.01 10^3/uL (0.0-0.06); Absolute Basophil Count 0.02 10^3/uL (0.0-0.2); Absolute Eosinophil Count 0.11 10^3/uL (0.0-0.7); Absolute Lymphocyte Count 0.68 10^3/uL (1.2-3.4); Absolute Monocyte Count 0.37 10^3/uL (0.1-0.8); Absolute Neutrophil Count 1.63 10^3/uL (1.2-6.7); Basophils % 0.7 %; Eosinophils % 3.9 %; HCT 38.4 % (40.0-50.0); HGB 13.1 g/dL (13.5-17.5); Immature Grans % 0.4 %; Lymphocytes % 24.1 %; MCH 30.2 pg (27.0-33.0); MCHC 34.1 % (32.0-36.0); MCV 89 fL (80-95); MPV 8.5 fL (8.0-11.0); Monocytes % 13.1 %; Neutrophils % 57.8 %; Platelet Count 166 10^3/uL (130-400); RBC 4.34 10^6/uL (4.36-5.78); RDW 12.5 % (11.8-14.1); RDW-SD 40.5 fL; WBC 2.82 10^3/uL (4.4-10.8)
[2024-05-09 12:21] LABS: ALT 29 U/L (16-63); AST 20 U/L (15-37); Albumin 3.8 g/dL (3.4-5.0); Alkaline Phosphatase 55 U/L (46-116); Anion Gap 7.6 mmol/L (3-11); BUN 13 mg/dL (7-18); Bilirubin, Total 0.24 mg/dL (0.2-1.0); CO2 29.4 mmol/L (21.0-32.0); CREATININE 0.9 mg/dL (0.70-1.30); Calcium 8.9 mg/dL (8.5-10.1); Chloride 104 mmol/L (98-107); Estimated GFR 100.24 (mL/min/1.73m2); FREE T4 1.09 ng/dL (0.76-1.46); Glucose 95 mg/dL (74-106); Sodium 141 mmol/L (136-145); TSH 2.77 uIU/mL (0.36-3.74)
[2024-05-09] MEDS: Normal Saline Flush 10 ML SYR IVP (12:24)
[2024-06-02 12:54] LABS: Abs Immature Grans 0.01 10^3/uL (0.0-0.06); Absolute Basophil Count 0.02 10^3/uL (0.0-0.2); Absolute Eosinophil Count 0.03 10^3/uL (0.0-0.7); Absolute Lymphocyte Count 0.52 10^3/uL (1.2-3.4); Absolute Monocyte Count 0.34 10^3/uL (0.1-0.8); Absolute Neutrophil Count 1.45 10^3/uL (1.2-6.7); Basophils % 0.8 %; Eosinophils % 1.3 %; HCT 37.1 % (40.0-50.0); HGB 12.8 g/dL (13.5-17.5); Immature Grans % 0.4 %; Lymphocytes % 21.9 %; MCH 30.7 pg (27.0-33.0); MCHC 34.5 % (32.0-36.0); MCV 89 fL (80-95); MPV 8.3 fL (8.0-11.0); Monocytes % 14.3 %; Neutrophils % 61.3 %; Platelet Count 106 10^3/uL (130-400); RBC 4.17 10^6/uL (4.36-5.78); RDW 14.4 % (11.8-14.1); RDW-SD 46.5 fL; WBC 2.37 10^3/uL (4.4-10.8)
[2024-06-02 13:24] LABS: ALT 28 U/L (16-63); AST 17 U/L (15-37); Albumin 3.7 g/dL (3.4-5.0); Alkaline Phosphatase 56 U/L (46-116); Anion Gap 8.2 mmol/L (3-11); BUN 21 mg/dL (7-18); Bilirubin, Total 0.27 mg/dL (0.2-1.0); CO2 29.8 mmol/L (21.0-32.0); Calcium 8.9 mg/dL (8.5-10.1); Chloride 103 mmol/L (98-107); Estimated GFR 88.33 (mL/min/1.73m2); FREE T4 0.88 ng/dL (0.76-1.46); Glucose 90 mg/dL (74-106); Potassium 3.9 mmol/L (3.5-5.1); Sodium 141 mmol/L (136-145); TSH 2.89 uIU/mL (0.36-3.74); Total Protein 6.6 g/dL (6.4-8.2)
[2024-06-02] MEDS: Normal Saline Flush 10 ML SYR IVP (13:28)
== END 2024-06-03 23:59 | disposition home or self-care (01) ==
LOC: INF 02:07
PROVIDERS: PCP Physician Assistant; Visit Provider Internal Medicine Hematology
DX: C01 Malignant neoplasm of base of tongue (principal); E03.4 Atrophy of thyroid (acquired); Z45.2 Encounter for adjustment and management of vascular access device
CPT/HCPCS: 36591; 80053; 84439; 84443; 85025

== ENCOUNTER 2024-06-30 02:13 | Outpatient (RCR) | payer BC, SELFPAY ==
[2024-06-09] MEDS: Normal Saline Flush 10 ML SYR IVP (12:02)
[2024-06-09 12:19] LABS: Abs Immature Grans 0.01 10^3/uL (0.0-0.06); Absolute Basophil Count 0.01 10^3/uL (0.0-0.2); Absolute Eosinophil Count 0.04 10^3/uL (0.0-0.7); Absolute Lymphocyte Count 0.66 10^3/uL (1.2-3.4); Absolute Monocyte Count 0.37 10^3/uL (0.1-0.8); Absolute Neutrophil Count 2.17 10^3/uL (1.2-6.7); Basophils % 0.3 %; Eosinophils % 1.2 %; HCT 38.8 % (40.0-50.0); HGB 13.4 g/dL (13.5-17.5); Immature Grans % 0.3 %; Lymphocytes % 20.2 %; MCH 30.9 pg (27.0-33.0); MCHC 34.5 % (32.0-36.0); MCV 89 fL (80-95); MPV 8.7 fL (8.0-11.0); Monocytes % 11.3 %; Neutrophils % 66.7 %; Platelet Count 164 10^3/uL (130-400); RBC 4.34 10^6/uL (4.36-5.78); RDW 14.6 % (11.8-14.1); RDW-SD 47.8 fL; WBC 3.26 10^3/uL (4.4-10.8)
[2024-06-09 13:40] LABS: ALT 33 U/L (16-63); AST 21 U/L (15-37); Albumin 3.9 g/dL (3.4-5.0); Alkaline Phosphatase 58 U/L (46-116); Anion Gap 4.1 mmol/L (3-11); BUN 16 mg/dL (7-18); Bilirubin, Total 0.43 mg/dL (0.2-1.0); CO2 30.9 mmol/L (21.0-32.0); CREATININE 0.9 mg/dL (0.70-1.30); Calcium 9.2 mg/dL (8.5-10.1); Chloride 104 mmol/L (98-107); Estimated GFR 100.24 (mL/min/1.73m2); FREE T4 0.85 ng/dL (0.76-1.46); Glucose 108 mg/dL (74-106); Potassium 4.1 mmol/L (3.5-5.1); Sodium 139 mmol/L (136-145); TSH 3.42 uIU/mL (0.36-3.74)
[2024-06-30] MEDS: Normal Saline Flush 10 ML SYR IVP (12:09)
[2024-06-30 12:59] LABS: Absolute Basophil Count 0.02 10^3/uL (0.0-0.2); Absolute Eosinophil Count 0.04 10^3/uL (0.0-0.7); Absolute Lymphocyte Count 0.66 10^3/uL (1.2-3.4); Absolute Monocyte Count 0.42 10^3/uL (0.1-0.8); Absolute Neutrophil Count 2.11 10^3/uL (1.2-6.7); Basophils % 0.6 %; Eosinophils % 1.2 %; HCT 37.3 % (40.0-50.0); HGB 12.9 g/dL (13.5-17.5); Lymphocytes % 20.3 %; MCH 31.2 pg (27.0-33.0); MCHC 34.6 % (32.0-36.0); MCV 90 fL (80-95); MPV 9.3 fL (8.0-11.0); Monocytes % 12.9 %; Platelet Count 124 10^3/uL (130-400); RBC 4.13 10^6/uL (4.36-5.78); RDW 15.5 % (11.8-14.1); RDW-SD 50.6 fL; WBC 3.25 10^3/uL (4.4-10.8)
[2024-06-30 13:33] LABS: ALT 28 U/L (16-63); AST 16 U/L (15-37); Albumin 3.5 g/dL (3.4-5.0); Alkaline Phosphatase 55 U/L (46-116); Anion Gap 3.9 mmol/L (3-11); BUN 13 mg/dL (7-18); Bilirubin, Total 0.37 mg/dL (0.2-1.0); CO2 33.1 mmol/L (21.0-32.0); CREATININE 0.9 mg/dL (0.70-1.30); Chloride 105 mmol/L (98-107); Estimated GFR 100.24 (mL/min/1.73m2); FREE T4 0.82 ng/dL (0.76-1.46); Glucose 73 mg/dL (74-106); Potassium 4.1 mmol/L (3.5-5.1); Sodium 142 mmol/L (136-145); TSH 4.97 uIU/mL (0.36-3.74)
== END 2024-07-04 23:59 | disposition home or self-care (01) ==
LOC: INF 02:13
PROVIDERS: PCP Physician Assistant; Visit Provider Internal Medicine Hematology
DX: C84.48 Peripheral T-cell lymphoma, not elsewhere classified, lymph nodes of multiple sites (principal); C01 Malignant neoplasm of base of tongue; E03.4 Atrophy of thyroid (acquired)
CPT/HCPCS: 36591; 80053; 84439; 84443; 85025

== ENCOUNTER 2025-03-16 03:18 | Outpatient (RCR) | payer BC, SELFPAY ==
[2025-03-16 13:47] LABS: Abs Immature Grans 0.00 10^3/uL (0.0-0.06); HCT 39.6 % (40.0-50.0); HGB 13.3 g/dL (13.5-17.5); Immature Grans % 0.0 %; MCH 29.4 pg (27.0-33.0); MCHC 33.6 % (32.0-36.0); MCV 88 fL (80-95); MPV 9.7 fL (8.0-11.0); Platelet Count 168 10^3/uL (130-400); RBC 4.52 10^6/uL (4.36-5.78); RDW 13.2 % (11.8-14.1); RDW-SD 42.5 fL; WBC 4.06 10^3/uL (4.4-10.8)
[2025-03-16] MEDS: Normal Saline Flush 10 ML SYR IVP (13:57)
[2025-03-16 14:13] LABS: ALT 26 U/L (16-63); AST 19 U/L (15-37); Albumin 3.8 g/dL (3.4-5.0); Alkaline Phosphatase 56 U/L (46-116); Anion Gap 7.7 mmol/L (3-11); BUN 20 mg/dL (7-18); Bilirubin, Total 0.3 mg/dL (0.2-1.0); CO2 30.3 mmol/L (21.0-32.0); Calcium 9.0 mg/dL (8.5-10.1); Chloride 104 mmol/L (98-107); Glucose 86 mg/dL (74-106); Potassium 3.9 mmol/L (3.5-5.1); Sodium 142 mmol/L (136-145); TSH 2.72 uIU/mL (0.36-3.74); Total Protein 6.8 g/dL (6.4-8.2)
== END 2025-04-03 23:59 | disposition home or self-care (01) ==
LOC: INF 03:18
PROVIDERS: PCP Physician Assistant; Visit Provider Internal Medicine Hematology
DX: Z45.2 Encounter for adjustment and management of vascular access device (principal); C01 Malignant neoplasm of base of tongue
CPT/HCPCS: 36591; 80053; 84439; 84443; 85025

== ENCOUNTER 2025-04-27 03:15 | Outpatient (RCR) | payer BC, SELFPAY ==
[2025-04-27 13:24] LABS: Abs Immature Grans 0.02 10^3/uL (0.0-0.06); HCT 38.8 % (40.0-50.0); HGB 13.1 g/dL (13.5-17.5); Immature Grans % 0.4 %; MCH 29.0 pg (27.0-33.0); MCHC 33.8 % (32.0-36.0); MCV 86 fL (80-95); MPV 9.3 fL (8.0-11.0); Platelet Count 319 10^3/uL (130-400); RBC 4.52 10^6/uL (4.36-5.78); RDW 12.3 % (11.8-14.1); RDW-SD 38.5 fL; WBC 5.45 10^3/uL (4.4-10.8)
[2025-04-27 14:01] LABS: TSH 9.94 uIU/mL (0.55-4.78)
[2025-04-27 14:02] LABS: ALT 26 U/L (10-49); AST 15 U/L (<34); Albumin 4.3 g/dL (3.4-5.0); Alkaline Phosphatase 65 U/L (46-116); Anion Gap 9.2 mmol/L (3-11); BUN 20 mg/dL (9-23); Bilirubin, Total 0.30 mg/dL (0.2-1.2); CO2 26.8 mmol/L (20.0-31.0); Calcium 9.1 mg/dL (8.3-10.6); Chloride 103 mmol/L (98-107); Glucose 91 mg/dL (74-106); Potassium 4.1 mmol/L (3.5-5.1); Sodium 139 mmol/L (136-145); Total Protein 6.8 g/dL (5.7-8.2)
[2025-04-27] MEDS: Normal Saline Flush 10 ML SYR IVP (14:09)
== END 2025-05-03 23:59 | disposition home or self-care (01) ==
LOC: INF 03:15
PROVIDERS: PCP Physician Assistant; Visit Provider Internal Medicine Hematology
DX: Z45.2 Encounter for adjustment and management of vascular access device (principal); C01 Malignant neoplasm of base of tongue
CPT/HCPCS: 36591; 80053; 84439; 84443; 85025